=== PATIENT | female | born 1955 | race Caucasian/White ===

== ENCOUNTER 2021-02-05 20:11 | Emergency (ER) | payer SELFPAY ==
[2021-02-05 20:47] LABS: #Lymphocytes 0.7 thou/uL (1.20-3.40); #Monocytes 0.4 thou/uL (0.11-0.59); #Neutrophils 8.6 thou/uL (1.40-6.50); %Basophils 0.2 % (0.0-1.0); %Monocytes 3.8 % (0.0-10.0); %Neutrophils 88.9 % (42.0-75.0); Hemoglobin 17.8 g/dL (12.0-16.0); Mean Corpuscular HGB CONC 32.1 g/dL (32.0-36.0); Mean Corpuscular Hemoglobin 30.8 pg (27.0-31.0); Mean Corpuscular Volume 95.8 fL (78.0-98.0); Mean Platelet Volume 10.7 fL (7.4-10.4); Platelet Count 315 thou/uL (130-400); RBC Distribution Width 12.1 % (11.5-14.5); Red Blood Cell (RBC) Count 5.79 mill/uL (4.20-5.40); White Blood Cell (WBC) Count 9.7 thou/uL (4.8-10.8)
[2021-02-05] MEDS ORDERED: Dexamethasone 4 mg/ml Vial ONE (20:50)
[2021-02-05] MEDS ORDERED: Sodium Chloride 0.9% 500 ML ONE (20:50)
[2021-02-05] MEDS ORDERED: Aspirin Chewable 81 MG TAB ONE (20:50)
[2021-02-05] MEDS ORDERED: Ondansetron PF 4 MG/2 ML Vial ONE (20:50)
[2021-02-05 21:06] LABS: ALT (SGPT) 50 U/L (8-55); AST (SGOT) 50 U/L (5-34); Albumin 3.8 g/dL (3.4-4.8); Alkaline Phosphatase 90 U/L (40-110); Anion Gap 19 mmol/L (10-20); BUN (Urea Nitrogen) 29 mg/dL (9.8-20.1); Bilirubin, Total 0.2 mg/dL (0.2-1.2); Calc. Creatinine Clearance 0 mL/min (70-130); Calcium 9.3 mg/dL (7.8-10.44); Carbon Dioxide 17 mmol/L (23-31); Chloride 105 mmol/L (98-107); Globulin 2.9 g/dL (2.4-3.5); Glucose 156 mg/dL (80-115); Protein, Total 6.7 g/dL (5.8-8.1); Sodium 136 mmol/L (136-145)
[2021-02-05] MEDS ORDERED: Sodium Chloride 0.9% 1,000 ML ONE (21:32)
[2021-02-05] MEDS ORDERED: Enoxaparin Sodium 40 MG/0.4 ML SYRINGE ONE (21:32)
[2021-02-05 21:41] LABS: SARS-CoV-2 NAA Rapid Test DETECTED (NotDetected)
== END 2021-02-05 22:31 | disposition short-term general hospital (02) ==
LOC: NAV ERS 20:11
DX: U07.1 COVID-19 (principal); J12.82 Pneumonia due to coronavirus disease 2019; N17.9 Acute kidney failure, unspecified; E86.0 Dehydration; I10 Essential (primary) hypertension; J45.909 Unspecified asthma, uncomplicated; E78.5 Hyperlipidemia, unspecified; E78.00 Pure hypercholesterolemia, unspecified
CPT/HCPCS: 36415; 71045; 80053; 83605; 83880; 84484; 85025; 85379; 86140; 93005; 94760; 96372; 96374; 96375; J1100; J1650; J2405; J7030; J7050; U0002

== ENCOUNTER 2021-07-06 11:49 | Emergency (ER) | payer MEDICARE ==
[2021-07-07 18:34] LABS: SARS-CoV-2 PCR by NAA DETECTED (NotDetected)
== END 2021-07-06 13:00 | disposition home or self-care (01) ==
LOC: NAV ERS 11:49
DX: U07.1 COVID-19 (principal); I10 Essential (primary) hypertension; E78.2 Mixed hyperlipidemia; J45.909 Unspecified asthma, uncomplicated
CPT/HCPCS: 87804 ×2; U0003; U0005; 99283

== ENCOUNTER 2021-07-15 11:45 | Outpatient (CLI) | payer OTHER | END 2021-07-15 11:46 | disposition home or self-care (01) | LOC: NAV RAD 11:45 | PROVIDERS: ATTEND Family Medicine | DX: M79.644 Pain in right finger(s) (principal); M18.30 Unilateral post-traumatic osteoarthritis of first carpometacarpal joint, unspecified hand; M19.041 Primary osteoarthritis, right hand ==

== ENCOUNTER 2022-09-17 09:22 | Outpatient (CLI) | payer MEDICARE | END 2022-09-17 09:23 | disposition home or self-care (01) | LOC: NAV RAD 09:22 | PROVIDERS: ATTEND Family Medicine | DX: M25.551 Pain in right hip (principal); M79.18 Myalgia, other site | CPT/HCPCS: 72170 ==